=== PATIENT | female | born 2000 | race Caucasian/White ===

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

== ENCOUNTER 2024-09-28 08:08 | Inpatient (IN) ==
[2024-09-28] MEDS ORDERED: Prochlorperazine 5 mg/ml 2 ml VIAL (10 mg) IV PRN (09:12)
[2024-09-28] MEDS ORDERED: Lidocaine 1% VIAL 10 MG/ML 30 ML VIAL INJ PRN (09:12)
[2024-09-28] MEDS ORDERED: Nalbuphine 10 MG/ML 1 ML VIAL IV PRN (09:12)
[2024-09-28] MEDS: miSOPROStol 100 mcg TAB PO ONE ×2 (10:04→14:06)
[2024-09-28] MEDS: Buffered Lidocaine 1% SYRIN 1 ml INTRADERM ONE (10:47)
[2024-09-28 11:38] LABS: ABS Eosinophils 0.1 10^3/uL (0.0-0.5); ABS Lymphocytes 1.4 10^3/uL (1.0-4.8); ABS Monocytes 0.5 10^3/uL (0.0-0.9); ABS Neutrophils 6.9 10^3/uL (1.5-7.6); ABS Nucleated RBC 0.01 10^3/ul; Eosinophil % 0.8 %; Hematocrit 32.5 % (35-45); Hemoglobin 11.2 g/dL (11.5-14.3); Lymphocyte % 16.1 %; Mean Corpuscular Hemoglobin 31.3 pg (27-33); Mean Corpuscular Hgb Conc 34.5 g/dL (31-36); Mean Corpuscular Volume 90.8 fL (80-97); Mean Platelet Volume 8.5 fL (7.5-11.2); Nucleated Red Blood Cells % 0.1 %/100WBC (0.0-0.8); Platelet Count 159 10^3/uL (150-450); Red Blood Count 3.58 10^6/uL (3.63-4.92); Red Cell Distribution Width 15.5 % (12-17); White Blood Count 8.9 10^3/uL (3.8-11.8)
[2024-09-28 12:03] LABS: Urine Benzodiazepine Screen None Detected (None Detect); Urine Cannabinoids Screen None Detected (None Detect); Urine Opiates Screen None Detected (None Detect)
[2024-09-28] MEDS: Lactated Ringers 1000 ml BAG 1,000 ML IV ONE ×2 (18:29→19:40)
[2024-09-28] MEDS: Lidocaine 1.5% EPI 1:200,000 30 ML SDV ONE (19:10)
[2024-09-28] MEDS: OBEPIDURAL (200 ML) 200 ML EPIDURAL ONE (19:32)
[2024-09-28] MEDS ORDERED: Sodium Citrate/Citric Acid LIQ 15 ML UDC PO PRN (19:35)
[2024-09-28] MEDS ORDERED: Phenylephrine 40 mcg/mL 10mL (400mcg) SYRINGE IV PUSH PRN ×2 (19:35)
[2024-09-28] MEDS: Lactated Ringers 1000 ml BAG 1,000 ML IV SCH (19:40)
[2024-09-28] MEDS: OBEPIDURAL (200 ML) 200 ML EPIDURAL SCH (19:40)
[2024-09-28] MEDS: Ondansetron 4 mg VIAL 2 MG/ML 2 ml VIAL IV PRN (20:46)
[2024-09-28 21:11] LABS: Urine Appearance Clear; Urine Bilirubin Negative (Negative); Urine Blood Negative (Negative); Urine Color Light-Yellow; Urine Glucose Negative (Negative); Urine Ketones Negative (Negative); Urine Nitrite Negative (Negative); Urine Protein Negative (Negative); Urine Specific Gravity 1.012 (1.002-1.030); Urine Urobilinogen Negative (Negative)
[2024-09-28 21:31] LABS: Urine Bacteria Absent /HPF (Absent); Urine Red Blood Cell 1+(3-5/hpf) /HPF (0-Trace); Urine Squamous Epithelial Cell Present /HPF (Absent); Urine White Blood Cell Trace(0-5/hpf) /HPF (0-Trace)
[2024-09-28] MEDS: Oxytocin in LR 20,000 MILLI.UNIT/1,000 ML BAG IV SCH (23:35)
[2024-09-29] MEDS ORDERED: Glycerin ADULT 2.4 gm SUPP PR PRN (00:03)
[2024-09-29] MEDS: Phenylephrine 40 mcg/mL 10mL (400mcg) SYRINGE ONE (00:33)
[2024-09-29] MEDS: Lactated Ringers 1000 ml BAG 1,000 ML IV SCH (00:33)
[2024-09-29] MEDS: Dibucaine 1% OINT 28.35 GM TUBE PR PRN (00:55)
[2024-09-29] MEDS: Witch Hazel PAD JAR TOPICAL PRN (00:55)
[2024-09-29] MEDS ORDERED: Lactated Ringers 1000 ml BAG 1,000 ML IV SCH (01:00)
[2024-09-29] MEDS: Oxytocin in LR 20,000 MILLI.UNIT/1,000 ML BAG IV SCH (01:32)
[2024-09-29 10:43] LABS: ABS Lymphocytes 1.4 10^3/uL (1.0-4.8); ABS Monocytes 0.5 10^3/uL (0.0-0.9); ABS Neutrophils 9.7 10^3/uL (1.5-7.6); Eosinophil % 0.4 %; Hematocrit 31.5 % (35-45); Hemoglobin 10.7 g/dL (11.5-14.3); Mean Corpuscular Hemoglobin 31.1 pg (27-33); Mean Corpuscular Hgb Conc 34.1 g/dL (31-36); Mean Corpuscular Volume 91.2 fL (80-97); Mean Platelet Volume 8.5 fL (7.5-11.2); Platelet Count 149 10^3/uL (150-450); Red Blood Count 3.46 10^6/uL (3.63-4.92); Red Cell Distribution Width 15.5 % (12-17); White Blood Count 11.7 10^3/uL (3.8-11.8)
[2024-09-30 07:37] VITALS: BP 124/80
== END 2024-09-30 12:00 | disposition home or self-care (01) | DRG 560 ==
LOC: MCHOBOUT 08:08 → MCHOB 08:41
PROVIDERS: ADMIT Advanced Practice Midwife; ATTEND Advanced Practice Midwife